=== PATIENT | male | born 1965 | race Caucasian/White ===

== ENCOUNTER 2020-01-21 17:06 | Emergency (ER) | payer SELFPAY ==
[~2020-01-21] VITALS: Ht 180.3 cm; Wt 84.1 kg
[2020-01-21] MEDS ORDERED: BACITRACIN 0.9 GM PACKET OINTMENT TP ONE (18:45)
[2020-01-21] MEDS ORDERED: ACETAMINOPHEN 500 MG TABLET PO ONE (18:45)
[2020-01-21] MEDS ORDERED: IBUPROFEN 600 MG TABLET PO ONE (18:45)
[2020-01-21 20:20] VITALS: BP 117/79
== END 2020-01-21 20:20 | disposition home or self-care (01) ==
LOC: EMS 17:06
DX: S13.9XXA Sprain of joints and ligaments of unspecified parts of neck, initial encounter (principal); S20.219A Contusion of unspecified front wall of thorax, initial encounter; V49.9XXA Car occupant (driver) (passenger) injured in unspecified traffic accident, initial encounter; Y93.89 Activity, other specified; Y92.488 Other paved roadways as the place of occurrence of the external cause; Y99.8 Other external cause status
CPT/HCPCS: 72040; 72100; 71045-TC